=== PATIENT | male | born 1995 | race Caucasian/White ===

== ENCOUNTER 2025-02-15 11:07 | Emergency (ER) | payer MEDICAID, SELFPAY ==
[2025-02-15 11:16] VITALS: BP 129/80; PULSE 67; RESP 16; TEMP 36.5; O2SAT 98; BMI 28.8
[2025-02-15 11:35] VITALS: BP 149/70; O2SAT 97
--- NOTE | 2025-02-15 11:35 | W.ED.EXTPRO ---
HPI - Extremity Problem General: Chief complaint: Extremity Injury, Upper Stated complaint: dog bite to L ring finger Time Seen by Provider: 02/15/25 11:25 Source: patient Mode of arrival: ambulatory Limitations: no limitations History of Present Illness: 29-year-old male states that he is trying to break up a dog fight and dog it bit him on the left ring finger. He does have a portion of his distal portion of his ring finger that the dog bit off. He has pain he rates 6 out of 10 dog is up-to-date on its shots. Denies any other injuries. Associated symptoms: Deny chest pain, fever(s) or rash Related Data Previous Rx's ?Medication ?Instructions ?Recorded amoxicillin 500 mg-potassium 1 tab PO BID #14 tabs 02/15/25 clavulanate 125 mg tablet (Augmentin) Allergies Allergy/AdvReac Type Severity Reaction Status Date / Time No Known Allergies Allergy Verified 02/15/25 11:22 Review of Systems Const: Denies: fever(s), chills, body aches or change in appetite ENMT: Denies: throat pain or dental pain Card: Denies: chest pain Resp: Denies: dyspnea GI: Denies: abdominal pain, nausea, vomiting or diarrhea Musc: Reports: extremity pain; Denies: neck pain or back pain Skin/Breast: Denies: rash Neuro: Denies: headache(s) Physical Exam Const: COMMON NORMALS: no acute distress, patient oriented x3 and healthy appearing HENMT: COMMON NORMALS: normocephalic and atraumatic HEAD & SCALP: normocephalic and atraumatic Eye: COMMON NORMALS: conjunctivae normal CONJUNCTIVA: Yes conjunctivae normal Neck/C-Spine: COMMON NORMALS: full ROM and supple Chest: COMMONS NORMALS: normal inspection of the chest Resp: COMMON NORMALS: normal respiratory effort Cardio: COMMON NORMALS: regular rate RATE: regular rate Extremity: NARRATIVE EXTREMITY EXAM: Dog bite noted to left ring finger does have the very distal portion including nail bitten off bleeding controlled Neuro: COMMON NORMALS: patient oriented x3, moves all extremities and no focal motor deficits Psych: COMMON NORMALS: mental status grossly normal, Normal thought process present and cooperative THOUGHT PROCESS: Normal thought process present Skin: COMMON NORMALS: no rashes or lesions noted and no wounds GENERAL SKIN EXAM: no rashes or lesions noted Course Vital Signs: Vital signs: Vital Signs Temperature 97.7 F 02/15/25 11:16 Pulse Rate 62 02/15/25 12:09 Respiratory Rate 18 02/15/25 12:09 Blood Pressure 149/70 02/15/25 12:09 Pulse Oximetry 97 02/15/25 12:09 Oxygen Delivery Me thod Room Air 02/15/25 11:16 MDM - Extremity (Nontraumatic) Medical Decision Making Patient presents here with amputation distal tip of his ring finger. I did speak to hand surgeon at [facility] Dr. Giang who recommended antibiotics along with a dressing to his finger and they are going to see him in their clinic on Saturday at 1050 I did tell patient this as well. Medical Records I reviewed the patient's medical records. All radiology interpretation(s) finalized by discharge Discharge Plan Discharge Patient Disposition: Home Clinical Impression: Finger injury Qualifiers: Encounter type: initial encounter Laterality: left Qualified Code(s): S69.92XA - Unspecified injury of left wrist, hand and finger(s), initial encounter Condition: Stable Prescriptions: New amoxicillin-pot clavulanate [Augmentin] 500-125 mg tablet 1 tab PO BID Qty: 14 0RF Discharge Orders: Discharge ED (Routine); Ordered 02/15/25 Ordered By: Andra Lee Referrals: Michael Mary MD [Referring, Orthopaedic Hand Surgery] Referral Note: appt Saturday 1050am Discharge Diet: Advance as tolerated Discharge Activity: Resume usual activity Patient Instructions: Finger Amputation (ED) Print Language: Serbian Coding Level of Care Code ED Director Of Planning for Cara Zhao
--- NOTE | 2025-02-15 11:36 | XRR_ITS ---
PROCEDURE INFORMATION: Exam: XR Left Hand Exam date and time: 02/15/2025 11:40 AM Age: 29 years old Clinical indication: Injury or trauma; Other: Dog bite; Puncture; Hand; Left; Injury details: Lt ring finger bit by dog TECHNIQUE: Imaging protocol: Radiologic exam of the left hand. Views: 3 or more views. COMPARISON: No relevant prior studies available. FINDINGS: Bones/joints: There is a very tiny portion of the bony ungual tuft which is now absent following injury. The fleshy fingertip is absent as well. No more proximal injury. Soft tissues: Normal. XR/XR hand LT min 3V* [id number] IMPRESSION: Traumatic amputation of the finger tip.
[2025-02-15] MEDS: HYDROcodone-acetaminophen 5-325 mg Tablet 1 TAB PO (11:39)
[2025-02-15] MEDS: tetanus-dipt-pertussis 0.5 mL SDV IM (11:40)
[2025-02-15 12:09] VITALS: BP 149/70; PULSE 62; RESP 18; O2SAT 97
== END 2025-02-15 12:10 | disposition home or self-care (01) ==
PROVIDERS: Emergency Provider Emergency Medicine
DX: S61.255A Open bite of left ring finger without damage to nail, initial encounter (principal); W54.0XXA Bitten by dog, initial encounter
CPT/HCPCS: 73130; 90471; 90715; 99283; J9999